=== PATIENT | male | born 1985 | race Caucasian/White ===

== ENCOUNTER 2018-05-01 22:11 | Emergency (ER) | payer MEDICAID, SELFPAY ==
[2018-05-01] MEDS ORDERED: Sulfameth/Trimethoprim DS 800-160mg TAB ONE (22:24)
== END 2018-05-01 22:28 | disposition home or self-care (01) ==
LOC: BURERS 22:11
DX: S60.511A Abrasion of right hand, initial encounter (principal); S60.811A Abrasion of right wrist, initial encounter; L03.114 Cellulitis of left upper limb; L03.113 Cellulitis of right upper limb; X58.XXXA Exposure to other specified factors, initial encounter
CPT/HCPCS: 99282